=== PATIENT | female | born 1925 | race Caucasian/White ===

== ENCOUNTER 2016-05-13 14:40 | Inpatient (IN) | payer MEDICARE ==
[2016-05-13] MEDS ORDERED: SODIUM CHLORIDE 0.9% 500 ML IV STA (15:23)
[2016-05-13] MEDS ORDERED: ONDANSETRON 4 MG/2 ML VIAL IVP STA (15:26)
--- NOTE | 2016-05-13 15:26 | ED ---
General Adult HPI - General Chief complaint: Neuro Symptoms/Deficit Stated complaint: CVA Symptoms Time Seen by Provider: 05/13/16 14:50 Source: family, RN notes reviewed Mode of arrival: wheelchair Limitations: no limitations - History of Present Illness Initial comments: This is an 89-year-old female who presents to the emergency department with family because lately she has had some confusion which is been intermittent for about 2 weeks she's also had some episodes of coughing up quite a bit of phlegm appears to family as being intermittent some that she has a Thursday she doesn't they also states patient has had slurred speech on occasion as well. According to family today she's doing very good but her family doctor wanted to come in and be worked up because of the symptoms. Patient also complains about a headache on a daily basis according to family which is unusual. Patient has not had any recent injury or trauma. Patient did have a fall but she landed on her buttocks and did not get hurt. Patient denies any dizziness or lightheadedness. Patient denies any palpitations chest pain. Patient denies any shortness of breath or difficulty breathing. Patient denies any abdominal pain patient has not had any diarrhea. She is mildly nauseated. - Related Data Home Medications Medication Instructions Recorded Confirmed ALPRAZolam [Xanax] 0.25 mg PO BID PRN 05/13/16 05/13/16 Losartan Potassium [Cozaar] 100 mg PO DAILY 05/13/16 05/13/16 Metoprolol Succinate (ER) [Toprol 100 mg PO HS 05/13/16 05/13/16 Xl] Multivits-Min/Iron/FA/Lutein 1 tab PO DAILY 05/13/16 05/13/16 [Centrum Silver Women Tablet] traMADol HCL [Ultram] 50 mg PO Q6HR PRN 05/13/16 05/13/16 Allergies Allergy/AdvReac Type Severity Reaction Status Date / Time Penicillins Allergy Unknown Verified 05/13/16 15:55 Sulfa (Sulfonamide Allergy Unknown Verified 05/13/16 15:55 Antibiotics) Review of Systems ROS Statement: Those systems with pertinent positive or pertinent negative responses have been documented in the HPI. ROS Other: All systems not noted in ROS Statement are negative. Past Medical History Past Medical History: Hypertension History of Any Multi-Drug Resistant Organisms: None Reported Past Surgical History: Adenoidectomy, Appendectomy, Back Surgery, Cholecystectomy, Orthopedic Surgery, Tonsillectomy Past Psychological History: Anxiety Smoking Status: Never smoker Past Alcohol Use History: None Reported Past Drug Use History: None Reported General Exam - General Exam Comments Initial Comments: GENERAL: Patient is well-developed and well-nourished. Patient is nontoxic and well- hydrated and is in no acute distress. ENT: Neck is soft and supple. No significant lymphadenopathy is noted. Oropharynx is clear. Moist mucous membranes. Neck has full range of motion without eliciting any pain. EYES: The sclera were anicteric and conjunctiva were pink and moist. Extraocular movements were intact and pupils were equal round and reactive to light. Eyelids were unremarkable. PULMONARY: Unlabored respirations. Good breath sounds bilaterally. No audible rales rhonchi or wheezing was noted. CARDIOVASCULAR: There is a regular rate and rhythm without any murmurs gallops or rubs. ABDOMEN: Soft and nontender with normal bowel sounds. No palpable organomegaly was noted. There is no palpable pulsatile mass. SKIN: Skin is clear with no lesions or rashes and otherwise unremarkable. NEUROLOGIC: Patient is alert and oriented x3. Cranial nerves II through XII are grossly intact. Motor and sensory are also intact. Normal speech, volume and content. Symmetrical smile. MUSCULOSKELETAL: Normal extremities with adequate strength and full range of motion. No lower extremity swelling or edema. No calf tenderness. LYMPHATICS: No significant lymphadenopathy is noted PSYCHIATRIC: Normal psychiatric evaluation. Limitations: no limitations Course Vital Signs 05/13/16 05/13/16 14:43 16:36 Temperature 97.5 F L Pulse Rate 56 L 53 L Respiratory 18 18 Rate Blood Pressure 222/104 154/73 O2 Sat by Pulse 95 Oximetry Medical Decision Making - Medical Decision Making EKG shows a sinus bradycardia with a PAC at 56 bpm. It was 170 QRS is under QT intervals 490 QT C is 472. Patient's EKG shows no ST segment elevation or depression or T-wave abdomen is noted. Patient's CAT scan was normal. Patient's chest x-ray was normal. Patient remained asymptomatic throughout her ED course. I spoke with Dr. Briggs he wanted the patient admitted and seen by neurology for these multiple TIAs symptoms over the last couple of weeks. - Lab Data Result diagrams: 05/13/16 15:50 05/13/16 15:50 Lab Results 05/13/16 05/13/16 05/13/16 Range/Units 15:50 15:50 15:50 WBC 7.8 (3.8-10.6) k/uL RBC 4.41 (3.80-5.40) m/uL Hgb 11.5 (11.4-16.0) gm/dL Hct 36.5 (34.0-46.0) % MCV 82.7 (80.0-100.0) fL MCH 26.0 (25.0-35.0) pg MCHC 31.4 (31.0-37.0) g/dL RDW 15.7 H (11.5-15.5) % Plt Count 386 (150-450) k/uL Neutrophils % 59 % Lymphocytes % 31 % Monocytes % 5 % Eosinophils % 3 % Basophils % 1 % Neutrophils # 4.6 (1.3-7.7) k/uL Lymphocytes # 2.4 (1.0-4.8) k/uL Monocytes # 0.4 (0-1.0) k/uL Eosinophils # 0.2 (0-0.7) k/uL Basophils # 0.0 (0-0.2) k/uL Hypochromasia Slight PT (9.0-12.0) sec INR (<1.1) APTT (22.0-30.0) sec Sodium 141 (137-145) mmol/L Potassium 2.7 L* (3.5-5.1) mmol/L Chloride 102 (98-107) mmol/L Carbon Dioxide 26 (22-30) mmol/L Anion Gap 13 mmol/L BUN 12 (7-17) mg/dL Creatinine 0.70 (0.52-1.04) mg/dL Est GFR (MDRD) Af Amer >60 (>60 ml/min/1.73 sqM) Est GFR (MDRD) Non-Af >60 (>60 ml/min/1.73 sqM) Glucose 81 (74-99) mg/dL Calcium 9.2 (8.4-10.2) mg/dL Magnesium 1.5 L (1.6-2.3) mg/dL Total Bilirubin 1.0 (0.2-1.3) mg/dL AST 38 H (14-36) U/L ALT 29 (9-52) U/L Alkaline Phosphatase 80 (38-126) U/L Total Creatine Kinase 60 (30-135) U/L CK-MB (CK-2) 0.7 (0.0-2.4) ng/mL CK-MB (CK-2) Rel Index 1.2 Troponin I 0.021 (0.000-0.034) ng/mL Total Protein 5.9 L (6.3-8.2) g/dL Albumin 3.3 L (3.5-5.0) g/dL 05/13/16 Range/Units 15:50 WBC (3.8-10.6) k/uL RBC (3.80-5.40) m/uL Hgb (11.4-16.0) gm/dL Hct (34.0-46.0) % MCV (80.0-100.0) fL MCH (25.0-35.0) pg MCHC (31.0-37.0) g/dL RDW (11.5-15.5) % Plt Count (150-450) k/uL Neutrophils % % Lymphocytes % % Monocytes % % Eosinophils % % Basophils % % Neutrophils # (1.3-7.7) k/uL Lymphocytes # (1.0-4.8) k/uL Monocytes # (0-1.0) k/uL Eosinophils # (0-0.7) k/uL Basophils # (0-0.2) k/uL Hypochromasia PT 10.7 (9.0-12.0) sec INR 1.1 (<1.1) APTT 18.1 L (22.0-30.0) sec Sodium (137-145) mmol/L Potassium (3.5-5.1) mmol/L Chloride (98-107) mmol/L Carbon Dioxide (22-30) mmol/L Anion Gap mmol/L BUN (7-17) mg/dL Creatinine (0.52-1.04) mg/dL Est GFR (MDRD) Af Amer (>60 ml/min/1.73 sqM) Est GFR (MDRD) Non-Af (>60 ml/min/1.73 sqM) Glucose (74-99) mg/dL Calcium (8.4-10.2) mg/dL Magnesium (1.6-2.3) mg/dL Total Bilirubin (0.2-1.3) mg/dL AST (14-36) U/L ALT (9-52) U/L Alkaline Phosphatase (38-126) U/L Total Creatine Kinase (30-135) U/L CK-MB (CK-2) (0.0-2.4) ng/mL CK-MB (CK-2) Rel Index Troponin I (0.000-0.034) ng/mL Total Protein (6.3-8.2) g/dL Albumin (3.5-5.0) g/dL Disposition Clinical Impression: Transient cerebral ischemia Disposition: ADMITTED IP TO THIS [facility] Time of Disposition: 16:59
[2016-05-13 16:03] LABS: Basophils % (A) 1 %; CH 26.6; CHCM 32.3; Eosinophils # (A) 0.2 k/uL (0-0.7); Eosinophils % (A) 3 %; HCT 36.5 % (34.0-46.0); HDW 3.39; HGB 11.5 gm/dL (11.4-16.0); Hypochromasia Slight; Luc % (Auto) 1; Lymphocytes # (A) 2.4 k/uL (1.0-4.8); Lymphocytes % (A) 31 %; MCHC 31.4 g/dL (31.0-37.0); MCV 82.7 fL (80.0-100.0); Mean Platelet Volume 7.8; Monocytes # (A) 0.4 k/uL (0-1.0); Monocytes % (A) 5 %; Neutrophils # (A) 4.6 k/uL (1.3-7.7); Neutrophils % (A) 59 %; RBC 4.41 m/uL (3.80-5.40); RDW 15.7 % (11.5-15.5); WBC 7.8 k/uL (3.8-10.6); WBC (Perox) 8.41
[2016-05-13 16:21] LABS: ALT 29 U/L (9-52); AST 38 U/L (14-36); Alkaline Phosphatase 80 U/L (38-126); Anion Gap 13 mmol/L; Blood Urea Nitrogen 12 mg/dL (7-17); Calcium 9.2 mg/dL (8.4-10.2); Carbon Dioxide 26 mmol/L (22-30); Chloride 102 mmol/L (98-107); Glucose 81 mg/dL (74-99); Magnesium 1.5 mg/dL (1.6-2.3); Non-African American GFR(MDRD) >60 (>60 ml/min/1.73 sqM); Sodium 141 mmol/L (137-145); Total Protein 5.9 g/dL (6.3-8.2)
[2016-05-13 16:25] LABS: Potassium 2.7 mmol/L (3.5-5.1)
[2016-05-13 16:29] LABS: INR 1.1 (<1.1); Prothrombin Time 10.7 sec (9.0-12.0)
--- NOTE | 2016-05-13 16:29 | XR ---
EXAMINATION TYPE: XR chest 2V DATE OF EXAM: 05/13/2016 4:20 PM COMPARISON: NONE INDICATION: Chest pain, fall TECHNIQUE: Frontal and lateral views of the chest are obtained. FINDINGS: Cardiomediastinal silhouette is slightly prominent. The pulmonary vasculature is normal. The lungs are clear. No pneumothorax is evident. Stimulator leads are within the thoracic region. IMPRESSION: 1. No acute pulmonary process. 2. Mild prominence of cardiomediastinal silhouette.
--- NOTE | 2016-05-13 16:31 | CT ---
EXAMINATION TYPE: CT brain wo con DATE OF EXAM: 05/13/2016 4:18 PM COMPARISON: NONE INDICATION: Stroke like symptoms. Pt unsure of why she is here. DLP: 1058 mGycm, Automated exposure control for dose reduction was used. CONTRAST: CT scan of the head is performed , patient injected with mL of . CT of the brain is performed utilizing 3 mm thick sections through the posterior fossa and 3 mm thick sections through the remaining calvarium. Study is performed within 24 hours of arrival to the hosp ital. No abnormal hyperdensity is present to suggest an acute intracranial hemorrhage. No mass lesion is evident. No acute infarcts are evident. Periventricular white matter hypodensity is present, likely on the bas is of microvascular ischemic change. Ventricles and sulci are mildly prominent for the patient age. Paranasal sinuses and mastoid air cells within the [id number]-[id number] are clear. IMPRESSIONS: 1. Mild periventricular white matter ischemic type changes.
[2016-05-13] MEDS ORDERED: POTASSIUM CHLORIDE ER 20 MEQ TAB.ER PO STA (16:33)
[2016-05-13 16:36] LABS: Creatine Kinase MB 0.7 ng/mL (0.0-2.4); Troponin I 0.021 ng/mL (0.000-0.034)
[2016-05-13 16:39] LABS: Partial Thromboplastin Time 18.1 sec (22.0-30.0)
[2016-05-13] MEDS ORDERED: POTASSIUM CHLORIDE 20 MEQ, LIDOCAINE 2% INJ 20 MG in SODIUM CHLORIDE 0.9% 100 ML IVPB ONE (17:00)
[2016-05-13 17:37] LABS: Amorphous Sediment,Urine Rare /hpf; Appearance,Urine Clear (Clear); Bacteria,Urine Rare /hpf; Bilirubin,Urine 1+ (Negative); Glucose,Urine (UA) Negative (Negative); Ketones,Urine 2+ (Negative); Leukocyte Esterase,Urine Small (Negative); Mucus,Urine Rare /hpf; Nitrite,Urine Negative (Negative); PH, Urine 6.5 (5.0-8.0); Particle Count 2496; Protein,Urine Trace (Negative); RBC,Urine 1 /hpf (0-5); Specific Gravity,Urine 1.012 (1.001-1.035); Squamous Epithelial Cell,Urine 9 /hpf (0-4); UA Billing (MACRO vs. MICRO) MICRO; WBC,Urine 3 /hpf (0-5)
[2016-05-13 21:20] VITALS: RESP 18
[2016-05-13] MEDS ORDERED: ACETAMINOPHEN TAB 325 MG TAB PO PRN (22:01)
--- NOTE | 2016-05-13 22:05 | US ---
EXAMINATION TYPE: US carotid duplex BILAT DATE OF EXAM: 05/13/2016 7:23 PM COMPARISON: NONE CLINICAL HISTORY: stroke like symptoms. Stenosis Grayscale, color Doppler, spectral Doppler imaging performed of the carotid arteries. EXAM MEASUREMENTS: RIGHT: Peak Systolic Velocity (PSV) cm/sec ----- Right CCA: 47.0 ----- Right ICA: 46.9 ----- Right ECA: 63.6 ICA/CCA ratio: 1.0 RIGHT: End Diastole cm/sec ----- Right CCA: 10.4 ----- Right ICA: 9.2 ----- Right ECA: 0.0 LEFT: Peak Systolic Velocity (PSV) cm/sec ----- Left CCA: 45.5 ----- Left ICA: 121.0 ----- Left ECA: 42.7 ICA/CCA ratio: 2.7 LEFT: End Diastole cm/sec ----- Left CCA: 12.7 ----- Left ICA: 30.5 ----- Left ECA: 0.0 VERTEBRALS (direction of flow): Right Vertebral: Antegrade Left Vertebral: Antegrade Bilateral wall thickening. Slight left distal ICA elevated velocity likely due to tortuous vessel, no abnormal peak systolic velocity. Anterior plaque seen in right bulb extending to ECA. Mild atheromatous plaque. IMPRESSION: No hemodynamic significant stenosis of the proximal internal carotid arteries bilaterally by Doppler criteria, and indirect measurement of carotid stenosis. Criteria for Assigning % of Stenosis / Diameter reduction (Estimation based on the indirect measurements of the internal carotid artery velocities (ICA PSV). 1. Normal (no stenosis)=ICA PSV < 125 cm/s: ratio < 2.0: ICA EDV<40 cm/s. 2. Less than 50% stenosis=ICA PSV < 125 cm/s: ratio < 2.0: ICA EDV<40 cm/s. 3. 50 to 69% stenosis=ICA PSV of 125 to 230 cm/s: ration 2.0 ? 4.0: ICA EDV 40-100 cm/s. 4. Greater than 70% stenosis to near occlusion= ICA PSV > 230 cm/s: ratio > 4.0: ICA EDV > 100 cm/s. 5. Near occlusion= ICA PSV velocities may be low or undetectable: variable ratio and ICA EDV. 6. Total occlusion=unable to detect flow.
[2016-05-13] MEDS: METOPROLOL SUCCINATE (ER) 100 MG TAB.ER.24H PO SCH (22:40)
[2016-05-13] MEDS: traMADol 50 MG TAB PO PRN (22:40)
[2016-05-13] MEDS: ALPRAZolam 0.25 MG TAB PO PRN (22:51)
[2016-05-14] MEDS: traMADol 50 MG TAB PO PRN ×3 (06:36→21:40)
[2016-05-14] MEDS: LOSARTAN 50 MG TAB PO SCH (08:47)
[2016-05-14] MEDS: ASPIRIN 81 MG CHEW PO SCH (08:48)
[2016-05-14] MEDS ORDERED: Potassium Replacement Protocol 1 EACH MISC MISCELLANE PRN (09:35)
[2016-05-14] MEDS ORDERED: Magnesium Replacement Protocol 1 EACH MISC MISCELLANE PRN (09:36)
[2016-05-14] MEDS: POTASSIUM CHLORIDE 10 MEQ, LIDOCAINE 2% INJ 10 MG in SODIUM CHLORIDE 0.9% 100 ML IV SCH ×2 (10:37→13:20)
[2016-05-14] MEDS: MAGNESIUM SULFATE-D5W PMX 1 GM in DEXTROSE/WATER 1 100ML.BAG IVPB SCH ×2 (10:37→13:20)
--- NOTE | 2016-05-14 11:41 | ECHOF ---
Referral Reason:TIA MEASUREMENTS -------- HEIGHT: 165.1 cm WEIGHT: 83.0 kg BP: 163/69 RVIDd: 3.2 cm (< 3.3) IVSd: 1.0 cm (0.6 - 1.1) LVIDd: 4.5 cm (3.9 - 5.3) LVPWd: 1.1 cm (0.6 - 1.1) IVSs: 2.0 cm LVIDs: 2.7 cm LVPWs: 1.7 cm LA Diam: 3.6 cm (2.7 - 3.8) LAESV Index (A-L): 30.17 ml/m Ao Diam: 3.1 cm (2.0 - 3.7) AV Cusp: 1.6 cm (1.5 - 2.6) LA Diam: 3.5 cm (2.7 - 3.8) MV EXCURSION: 19.783 mm (> 18.000) MV EF SLOPE: 126 mm/s (70 - 150) EPSS: 0.3 cm MV E Timothy: 0.78 m/s MV DecT: 342 ms MV A Timothy: 0.64 m/s MV E/A Ratio: 1.22 RAP: 5.00 mmHg RVSP: 44.45 mmHg FINDINGS -------- Resting bradycardia (HR<60bpm). This was a technically good study. Left ventricular wall thickness is normal. Overall left ventricular systolic function is normal with, an EF between 60 - 65 %. The right ventricle is mildly enlarged. LA is midly dilated 29-33ml/m2. The right atrium is normal in size. Aortic valve is trileaflet and is mildly thickened. The mitral valve leaflets are mildly thickened. Mild mitral annular calcification present. Axyy-xj-cwsckblk mitral regurgitation is present. Svky-xq-gwhqwscx tricuspid regurgitation present. There is mild pulmonary hypertension. The right ventricular systolic pressure, as measured by Doppler, is 44.45mmHg. Trace/mild (physiologic) pulmonic regurgitation. The aortic root size is normal. Normal inferior vena cava with normal inspiratory collapse consistent with estimated right atrial pressure of 5 mmHg. The pericardium is normal. CONCLUSIONS -------- 1. Resting bradycardia (HR<60bpm). 2. Mild mitral annular calcification present. 3. Gpkm-ii-ozzftxmu mitral regurgitation is present. 4. Eeuo-so-hxyduvqp tricuspid regurgitation present. 5. There is mild pulmonary hypertension. 6. The right ventricular systolic pressure, as measured by Doppler, is 44.45mmHg. 7. Trace/mild (physiologic) pulmonic regurgitation. 8. The aortic root size is normal. 9. The pericardium is normal. 10. This was a technically good study. 11. Left ventricular wall thickness is normal. 12. Overall left ventricular systolic function is normal with, an EF between 60 - 65 %. 13. The right ventricle is mildly enlarged. 14. LA is midly dilated 29-33ml/m2. 15. The right atrium is normal in size. 16. Aortic valve is trileaflet and is mildly thickened. 17. The mitral valve leaflets are mildly thickened. REGISTERED PHARMACIST: Steffen Wren RDCS
--- NOTE | 2016-05-14 12:40 | P.HPIM ---
History of Present Illness H&P Date: 05/14/16 Chief Complaint: Episode of confusion, possible TIA Patient is an 89-year-old female who presented to [facility] emergency room after having an episode of confusion family states that patient was unable to recognize her daughter, she was severely confused she states that she fell down 4 days prior to this admission she denies any head trauma, she states that she slid off the bed and hit her lower back, she states that she takes tramadol for pain at home but denies taking any extra pills in the last few days, she was evaluated in the emergency room in regard to her confusion and was admitted to telemetry floor for further evaluation and treatment. Computed tomography scan of the brain was done in the emergency room without contrast and revealed mild periventricular small vessel ischemic changes otherwise no abnormality. Echocardiogram and carotid Dopplers were ordered. Past Medical History Past Medical History: Cancer, GERD/Reflux, Hearing Disorder / Deafness, Hyperlipidemia, Hypertension, Memory Impairment Additional Past Medical History / Comment(s): Macular degeneration, TETLIN, breast CA, uses a walker at home, fall at home on 05/09/2016, memory impairment new onset as of 05/13/2016 History of Any Multi-Drug Resistant Organisms: None Reported Past Surgical History: Adenoidectomy, Appendectomy, Back Surgery, Cholecystectomy, Orthopedic Surgery, Tonsillectomy Additional Past Surgical History / Comment(s): Bilat knee repalacements, all bottom teeth removed and relaced in 1999, breast lumpectomy r/t breast CA in 1999 Past Anesthesia/Blood Transfusion Reactions: No Reported Reaction Past Psychological History: Anxiety Smoking Status: Never smoker Past Alcohol Use History: None Reported Past Drug Use History: None Reported - Past Family History Mother History Unknown: Yes Additional Family Medical History / Comment(s): states mom in her early 30's from a unknown cause Father Family Medical History: Myocardial Infarction ([place]) Additional Family Medical History / Comment(s): d/t an [place] Medications and Allergies Home Medications Medication Instructions Recorded Confirmed Type ALPRAZolam [Xanax] 0.25 mg PO BID PRN 05/13/16 05/13/16 History Losartan Potassium [Cozaar] 100 mg PO DAILY 05/13/16 05/13/16 History Metoprolol Succinate (ER) [Toprol 100 mg PO HS 05/13/16 05/13/16 History Xl] Multivits-Min/Iron/FA/Lutein 1 tab PO DAILY 05/13/16 05/13/16 History [Centrum Silver Women Tablet] traMADol HCL [Ultram] 50 mg PO Q6HR PRN 05/13/16 05/13/16 History Allergies Allergy/AdvReac Type Severity Reaction Status Date / Time Penicillins Allergy Unknown Verified 05/13/16 15:55 Sulfa (Sulfonamide Allergy Unknown Verified 05/13/16 15:55 Antibiotics) Physical Exam Vitals: Vital Signs Temp Pulse Pulse Pulse Resp BP BP 05/14/16 08:00 97.6 F 58 L 18 156/74 05/14/16 04:00 53 L 18 163/69 05/13/16 23:58 56 L 18 188/72 05/13/16 20:30 96.4 F L 52 L 52 L 18 177/78 05/13/16 19:56 164/79 05/13/16 19:48 97.6 F 52 L 16 164/102 05/13/16 19:01 53 L 17 05/13/16 18:52 97.8 F 51 L 17 05/13/16 18:01 52 L 17 BP Pulse Ox 05/14/16 08:00 95 05/14/16 04:00 93 L 05/13/16 23:58 94 L 05/13/16 20:30 95 05/13/16 19:56 05/13/16 19:48 99 05/13/16 19:01 167/107 100 05/13/16 18:52 164/76 99 05/13/16 18:01 169/82 94 L Intake and Output 05/13/16 05/14/16 05/14/16 22:59 06:59 14:59 Intake Total 300 300 Output Total 352 Balance -52 300 Intake: Oral 300 300 Output: Urine 350 Urine/Stool Mix 2 Other: Voiding Method Toilet Toilet # Voids 1 Weight 90.718 kg 83.4 kg In general at this time patient is alert and oriented 3 in no apparent distress she states that at this time she is back to her baseline HEENT without any acute abnormality Neck is supple no JVD no goiter no lymphadenopathy Chest exam reveals a few scattered crackles no wheezing Cardiac exam reveals regular heart sounds no gallops no murmurs Abdomen is soft nontender no organomegaly Extremity exam reveals no edema no cyanosis or clubbing Neurological examination reveals no focal neurological deficit Results CBC & Chem 7: 05/13/16 15:50 05/14/16 07:18 Labs: Abnormal Lab Results - Last 24 Hours (Table) 05/13/16 05/14/16 Range/Units 17:02 07:18 Potassium 3.1 L (3.5-5.1) mmol/L Urine Protein Trace H (Negative) Urine Ketones 2+ H (Negative) Urine Bilirubin 1+ H (Negative) Ur Leukocyte Esterase Small H (Negative) Ur Squamous Epith Cells 9 H (0-4) /hpf Amorphous Sediment Rare H (None) /hpf Urine Bacteria Rare H (None) /hpf Urine Mucus Rare H (None) /hpf Thrombosis Risk Factor Assmnt - Choose All That Apply Any of the Below Risk Factors Present?: Yes Each Factor Represents 1 point: Obesity (BMI >25) Other Risk Factors: Yes Each Risk Factor Represents 3 Points: Age 75 years or older Other congenital or acquired thrombophilia - If yes, enter type in comment: No Thrombosis Risk Factor Assessment Total Risk Factor Score: 4 Thrombosis Risk Factor Assessment Level: Moderate Risk Assessment and Plan Plan: #1 episode of confusion may represent a TIA at this time aspirin was added to regimen echocardiogram and carotid Doppler were ordered #2 urinary tract infection patient will be started on Cipro Will obtain urine culture #3 underlying history of hypertension well-controlled on current medication #4 underlying history of degenerative disc disease was chronic back pain maintained on tramadol #5 underlying history of anxiety disorder maintained on Xanax when necessary At this time awaiting testing results will follow closely thank you very much end
[2016-05-14] MEDS: ALPRAZolam 0.25 MG TAB PO PRN ×2 (13:20→21:41)
[2016-05-14] MEDS: CIPROFLOXACIN HCL 250 MG TAB PO SCH ×2 (16:28→21:42)
--- NOTE | 2016-05-14 20:24 | P.CNNES ---
History of Present Illness Consult date: 05/14/16 Reason for Consult: Patient with episode of confusion and possible TIA. History of Present Illness: This patient is a pleasant 89-year-old right-handed white female who was admitted to [facility] for episode of acute confusion and recent fall. Patient had been having symptoms of multiple falls and weakness as well as intermittent slurring of her speech. Apparently this has been ongoing over the last week. Patient states she was just not feeling well for the past 1 week and had weakness involving both upper and lower extremities. Her daughter who checks on her on a regular basis noted also that she appeared to be much more confused and disoriented. For these reasons it was decided to bring her to the emergency room for further evaluation. She was seen in the ER and was sent for a computed tomography scan of the brain. CAT scan of the brain revealed only mild periventricular small vessel ischemic changes otherwise no other acute stroke or hemorrhage was noted. She was admitted to the hospital for further evaluation for possible TIA. Patient states she did have difficulty with her speech about a week ago. Her speech is now returned much to normal. In the emergency room she did have evidence of a urinary tract infection and has been started on antibiotic therapy. The daughter who is at bedside has noted a significant improvement in her mental status today. She does seem to be back to near baseline level of function. The patient underwent carotid Doppler ultrasound yesterday which was negative for any evidence of carotid artery stenosis. Echocardiogram of the heart reveals ejection fraction of 60%. Patient is quite alert and is able to follow all questions and answers at this time. Patient is now admitted and neurology has been consulted for further evaluation and recommendations. Review of Systems Constitutional: Denies chills, Denies fever Eyes: denies blurred vision, denies pain Ears, nose, mouth and throat: Denies headache, Denies sore throat Cardiovascular: Denies chest pain, Denies shortness of breath Respiratory: Denies cough Gastrointestinal: Denies abdominal pain, Denies diarrhea, Denies nausea, Denies vomiting Genitourinary: Denies dysuria, Denies hematuria Musculoskeletal: Denies myalgias Integumentary: Denies pruritus, Denies rash Neurological: Reports change in mentation, Reports change in speech, Denies numbness, Denies weakness Psychiatric: Denies anxiety, Denies depression Endocrine: Denies fatigue, Denies weight change Past Medical History Past Medical History: Cancer, GERD/Reflux, Hearing Disorder / Deafness, Hyperlipidemia, Hypertension, Memory Impairment Additional Past Medical History / Comment(s): Macular degeneration, [place], breast [place], uses a walker at home, fall at home on 05/09/2016, memory impairment new onset as of 05/13/2016 History of Any Multi-Drug Resistant Organisms: None Reported Past Surgical History: Adenoidectomy, Appendectomy, Back Surgery, Cholecystectomy, Orthopedic Surgery, Tonsillectomy Additional Past Surgical History / Comment(s): Bilat knee repalacements, all bottom teeth removed and relaced in 1999, breast lumpectomy r/t breast CA in 1999 Past Anesthesia/Blood Transfusion Reactions: No Reported Reaction Past Psychological History: Anxiety Smoking Status: Never smoker Past Alcohol Use History: None Reported Past Drug Use History: None Reported - Past Family History Mother History Unknown: Yes Additional Family Medical History / Comment(s): states mom in her early 30's from a unknown cause Father Family Medical History: Myocardial Infarction ([place]) Additional Family Medical History / Comment(s): d/t an [place] Medications and Allergies Home Medications Medication Instructions Recorded Confirmed Type ALPRAZolam [Xanax] 0.25 mg PO BID PRN 05/13/16 05/13/16 History Losartan Potassium [Cozaar] 100 mg PO DAILY 05/13/16 05/13/16 History Metoprolol Succinate (ER) [Toprol 100 mg PO HS 05/13/16 05/13/16 History Xl] Multivits-Min/Iron/FA/Lutein 1 tab PO DAILY 05/13/16 05/13/16 History [Centrum Silver Women Tablet] traMADol HCL [Ultram] 50 mg PO Q6HR PRN 05/13/16 05/13/16 History Allergies Allergy/AdvReac Type Severity Reaction Status Date / Time Penicillins Allergy Unknown Verified 05/13/16 15:55 Sulfa (Sulfonamide Allergy Unknown Verified 05/13/16 15:55 Antibiotics) Physical Examination - Vital Signs Vital Signs: Vital Signs Temp Pulse Pulse Pulse Resp BP BP 05/14/16 08:00 97.6 F 58 L 18 156/74 05/14/16 04:00 53 L 18 163/69 05/13/16 23:58 56 L 18 188/72 05/13/16 20:30 96.4 F L 52 L 52 L 18 177/78 05/13/16 19:56 164/79 05/13/16 19:48 97.6 F 52 L 16 164/102 05/13/16 19:01 53 L 17 05/13/16 18:52 97.8 F 51 L 17 05/13/16 18:01 52 L 17 BP Pulse Ox 05/14/16 08:00 95 05/14/16 04:00 93 L 05/13/16 23:58 94 L 05/13/16 20:30 95 05/13/16 19:56 05/13/16 19:48 99 05/13/16 19:01 167/107 100 05/13/16 18:52 164/76 99 05/13/16 18:01 169/82 94 L Intake and Output 05/14/16 05/14/16 05/14/16 06:59 14:59 22:59 Intake Total 300 520 Output Total 352 Balance -52 520 Intake: Oral 300 520 Output: Urine 350 Urine/Stool Mix 2 Other: Voiding Method Toilet # Voids 1 1 Weight 83.4 kg - Constitutional General appearance: average body habitus, cooperative - EENT EENT: PERRL, mucous membranes moist - Respiratory Respiratory: lungs clear, normal breath sounds - Cardiovascular Cardiovascular: regular rate, normal S1, normal S2 Extremities: no peripheral edema bilaterally - Gastrointestinal Gastrointestinal: normoactive bowel sounds - Integumentary Integumentary: normal - Neurologic Cranial nerve examination: PERRL, EOMI, VFF, V1/V2/V3 grossly intact, face symmetric, tongue midline, intact gag reflex, intact corneal reflex, normal palatal elevation Speech examination: intact Sensorimotor examination: intact Detailed motor examination: grossly full strength in all extremities Detailed sensory examination: intact Reflex and gait examination: intact Reflexes: 1+: ankle, bicep, knee, tricep - Musculoskeletal Musculoskeletal: no pain - Psychiatric Psychiatric: mood/affect appropriate, cooperative Results - Laboratory Findings CBC and BMP: 05/13/16 15:50 05/14/16 07:18 Abnormal Lab Findings: Abnormal Labs 05/13/16 05/14/16 17:02 07:18 Potassium 3.1 L Urine Protein Trace H Urine Ketones 2+ H Urine Bilirubin 1+ H Ur Leukocyte Esterase Small H Ur Squamous Epith Cells 9 H Amorphous Sediment Rare H Urine Bacteria Rare H Urine Mucus Rare H Assessment and Plan (1) Metabolic encephalopathy Status: Acute Code(s): G93.41 - METABOLIC ENCEPHALOPATHY (2) Transient cerebral ischemia Status: Acute Code(s): G45.9 - TRANSIENT CEREBRAL ISCHEMIC ATTACK, UNSPECIFIED Plan: This patient is a pleasant 89-year-old female admitted to hospital with episode of recurrent slurred speech and recent fall at home 5 days ago. Patient was brought into the emergency room where she was found to have evidence of urinary tract infection and was admitted to the hospital. She underwent computed tomography scan of the brain which failed to reveal any evidence of acute stroke or hemorrhage. She was started on antibiotics for urinary tract infection. She underwent a carotid Doppler ultrasound and echocardiogram both of these results are normal for her age. This patient's neurological exam at this time is nonfocal. She is doing much better in terms of her mental status and cognition. This patient likely has had an episode of acute metabolic encephalopathy secondary to urinary tract infection. She is showing significant improvement today. We will continue close monitoring for any recurrent TIA like symptoms. Her overall prognosis at this time remains guarded. Time with Patient: Greater than 30
[2016-05-14] MEDS: METOPROLOL SUCCINATE (ER) 100 MG TAB.ER.24H PO SCH (21:42)
[2016-05-15 09:28] LABS: ALT 34 U/L (9-52); AST 34 U/L (14-36); Alkaline Phosphatase 67 U/L (38-126); Anion Gap 10 mmol/L; Blood Urea Nitrogen 12 mg/dL (7-17); Calcium 8.5 mg/dL (8.4-10.2); Carbon Dioxide 31 mmol/L (22-30); Chloride 104 mmol/L (98-107); Glucose 103 mg/dL (74-99); Non-African American GFR(MDRD) >60 (>60 ml/min/1.73 sqM); Sodium 145 mmol/L (137-145); Total Bilirubin 0.6 mg/dL (0.2-1.3); Total Protein 5.4 g/dL (6.3-8.2)
[2016-05-15 09:32] LABS: Basophils % (A) 1 %; CH 25.5; CHCM 29.3; Eosinophils # (A) 0.2 k/uL (0-0.7); Eosinophils % (A) 4 %; HCT 35.1 % (34.0-46.0); HDW 3.16; HGB 10.6 gm/dL (11.4-16.0); Hypochromasia Marked; Luc # (Auto) 0.16; Luc % (Auto) 3; Lymphocytes # (A) 1.9 k/uL (1.0-4.8); Lymphocytes % (A) 29 %; MCH 26.4 pg (25.0-35.0); MCHC 30.1 g/dL (31.0-37.0); MCV 87.6 fL (80.0-100.0); Monocytes # (A) 0.4 k/uL (0-1.0); Monocytes % (A) 6 %; Neutrophils # (A) 3.7 k/uL (1.3-7.7); Neutrophils % (A) 58 %; RDW 15.9 % (11.5-15.5); WBC 6.4 k/uL (3.8-10.6)
[2016-05-15 09:43] LABS: Potassium 2.9 mmol/L (3.5-5.1)
[2016-05-15] MEDS: traMADol 50 MG TAB PO PRN (09:47)
[2016-05-15] MEDS: ASPIRIN 81 MG CHEW PO SCH (09:47)
[2016-05-15] MEDS: CIPROFLOXACIN HCL 250 MG TAB PO SCH (09:47)
[2016-05-15] MEDS: LOSARTAN 50 MG TAB PO SCH (09:47)
[2016-05-15] MEDS: POTASSIUM CHLORIDE ER 20 MEQ TAB.ER PO SCH ×3 (10:49→13:53)
[2016-05-15] MEDS ORDERED: MAGNESIUM SULFATE-D5W PMX 1 GM in DEXTROSE/WATER 1 100ML.BAG IVPB ONE (11:00)
[2016-05-15 11:11] LABS: Manual Review Performed
[2016-05-15 11:15] VITALS: BMI 30.5
--- NOTE | 2016-05-15 13:11 | P.DS ---
Providers Date of admission: 05/13/16 17:01 Expected date of discharge: 05/15/16 Attending physician: Dereck Briggs Consults: 05/14/16 12:31 Consult Physician Routine Consulting Provider: Brisa Jenkins Consult Reason/Comments: TIA, abnormal echo Do you want consulting provider notified?: Yes Dr. Dhaliwal Primary care physician: Dereck Brigitte [facility] Course: Discharge diagnosis 1. Acute metabolic encephalopathy secondary to UTI 2. Possible TIA 3. UTI continue Cipro for 6 more days 4. Essential hypertension 5. Chronic back pain and degenerative disc disease 6. Generalized anxiety disorder 7. Hypokalemia. Patient received potassium supplement at discharge. Potassium 2.9. Recommend checking a potassium level on Thursday. Also patient was discharged home with K-Dur 20 milliequivalents daily. Hospital course Patient is an 89-year-old female who presented to [facility] emergency room after having an episode of confusion family states that patient was unable to recognize her daughter, she was severely confused she states that she fell down 4 days prior to this admission she denies any head trauma, she states that she slid off the bed and hit her lower back, she states that she takes tramadol for pain at home but denies taking any extra pills in the last few days, she was evaluated in the emergency room in regard to her confusion and was admitted to telemetry floor for further evaluation and treatment. Computed tomography scan of the brain was done in the emergency room without contrast and revealed mild periventricular small vessel ischemic changes otherwise no abnormality. Carotid Doppler showed no significant hemodynamic stenosis. Echo showed an EF of 60-65% with mild pulmonary hypertension. Also showed bradycardia. Patient's heart rate is currently been in the 60s. She was evaluated by cardiology before discharge. Patient was also evaluated by neurology. The neurologist felt the patient's confusion was likely due to a metabolic encephalopathy from her UTI. Patient was started on Cipro for her UTI. Urine cultures pending at time of discharge. Patient's confusion has resolved. And she is medically stable for discharge. Patient was also started on a baby aspirin for possible TIA. Patient will be discharged home with home healthcare. Please refer to chart for any further details. Patient Condition at Discharge: Stable Plan - Discharge Summary New Discharge Prescriptions: Aspirin 81 mg PO DAILY #30 chew Ciprofloxacin HCl [Cipro] 250 mg PO BID #12 tab Potassium Chloride ER [K-Dur 20] 20 meq PO DAILY #30 tab Discharge Medication List ALPRAZolam [Xanax] 0.25 mg PO BID PRN 05/13/16 [History] Losartan Potassium [Cozaar] 100 mg PO DAILY 05/13/16 [History] Metoprolol Succinate (ER) [Toprol XL] 100 mg PO HS 05/13/16 [History] Multivits-Min/Iron/FA/Lutein [Centrum Silver Women Tablet] 1 tab PO DAILY [History] traMADol HCL [Ultram] 50 mg PO Q6HR PRN 05/13/16 [History] Aspirin 81 mg PO DAILY #30 chew 05/15/16 [Rx] Ciprofloxacin HCl [Cipro] 250 mg PO BID #12 tab 05/15/16 [Rx] Potassium Chloride ER [K-Dur 20] 20 meq PO DAILY #30 tab 05/15/16 [Rx] Follow up Appointment(s)/Referral(s): Dereck Briggs MD [Primary Care Provider] - 05/19/16 Activity/Diet/Wound Care/Special Instructions: Diet: cardiac Activity: as tolerated Check BMP on Thursday Discharge Disposition: HOME WITH HOME HEALTH SERVICES
--- NOTE | 2016-05-15 13:52 | P.CRDCN ---
History of Present Illness Consult date: 05/15/16 Requesting physician: Dereck Briggs Reason for Consult (text): TIA Chief complaint: Mental status changes History of present illness: This is an 89-year-old female with history of hyperlipidemia, hypertension, GERD, who was brought to the hospital by her family because of confusion. According to the daughter she was unable to even recognize her. apparently also had a fall 4-5 days prior to this. CT of the brain was done on admission here which did not reveal any significant change, it did show some mild. Ventricular small vessel ischemic change. An echocardiogram with Doppler study was performed which revealed an ejection fraction of 60-65%. Hemodynamically stable, blood pressure 158/80, heart rate in the 50s to 60s 93% on room air. Patient was also found to have a UTI, urine culture has been sent. She was initiated on IV antibiotics. EKG on arrival here showed a sinus bradycardia with no acute changes. Chest x-ray did not reveal any acute cardiopulmonary process. Carotid duplex study did not reveal any significant obstructive stenosis. Lab data was reviewed, hemoglobin 10.6, potassium on admission 2.7, 2.9 this morning, receiving replacement. BUN 12, creatinine 0.8. Magnesium level on admission 1.5, 1.7 this morning. Patient was seen in consultation by neurology and it was felt that the patient's symptoms were likely secondary to UTI. Past Medical History Past Medical History: Cancer, GERD/Reflux, Hearing Disorder / Deafness, Hyperlipidemia, Hypertension, Memory Impairment Additional Past Medical History / Comment(s): Macular degeneration, [place], breast [place], uses a walker at home, fall at home on 05/09/2016, memory impairment new onset as of 05/13/2016 History of Any Multi-Drug Resistant Organisms: None Reported Past Surgical History: Adenoidectomy, Appendectomy, Back Surgery, Cholecystectomy, Orthopedic Surgery, Tonsillectomy Additional Past Surgical History / Comment(s): Bilat knee repalacements, all bottom teeth removed and relaced in 1999, breast lumpectomy r/t breast [place] in 1999 Past Anesthesia/Blood Transfusion Reactions: No Reported Reaction Past Psychological History: Anxiety Smoking Status: Never smoker Past Alcohol Use History: None Reported Past Drug Use History: None Reported - Past Family History Mother History Unknown: Yes Additional Family Medical History / Comment(s): states mom in her early 30's from a unknown cause Father Family Medical History: Myocardial Infarction ([place]) Additional Family Medical History / Comment(s): d/t an [place] Medications and Allergies Home Medications Medication Instructions Recorded Confirmed Type ALPRAZolam [Xanax] 0.25 mg PO BID PRN 05/13/16 05/13/16 History Losartan Potassium [Cozaar] 100 mg PO DAILY 05/13/16 05/13/16 History Metoprolol Succinate (ER) [Toprol 100 mg PO HS 05/13/16 05/13/16 History XL] Multivits-Min/Iron/FA/Lutein 1 tab PO DAILY 05/13/16 05/13/16 History [Centrum Silver Women Tablet] traMADol HCL [Ultram] 50 mg PO Q6HR PRN 05/13/16 05/13/16 History Allergies Allergy/AdvReac Type Severity Reaction Status Date / Time Penicillins Allergy Unknown Verified 05/13/16 15:55 Sulfa (Sulfonamide Allergy Unknown Verified 05/13/16 15:55 Antibiotics) Physical Exam Vitals: Vital Signs Temp Pulse Pulse Resp BP Pulse Ox 05/15/16 09:16 93 L 05/15/16 08:00 98 F 57 L 18 159/69 94 L 05/15/16 04:00 67 18 158/82 93 L 05/15/16 00:00 73 18 125/59 92 L 05/14/16 20:00 98.7 F 65 18 193/86 90 L 05/14/16 16:00 97.5 F L 53 L 59 L 18 167/82 92 L Intake and Output 05/14/16 05/15/16 05/15/16 22:59 06:59 14:59 Intake Total 236 300 120 Output Total 400 200 Balance -164 100 120 Intake: Oral 236 300 120 Output: Urine 400 200 Other: Voiding Method Toilet # Voids 2 1 Weight 83.2 kg 83.2 kg Patient Weight 05/16/16 06:59 Weight 83.2 kg PHYSICAL EXAMINATION: HEENT: Head is atraumatic, normocephalic. Pupils equal, round. Neck is supple. There is no elevated jugular venous pressure. HEART EXAMINATION: S1 and S2 systolic murmur is heard. CHEST EXAMINATION: Lungs are clear to auscultation and precussion. No chest wall tenderness is noted on palpation or with deep breathing. ABDOMEN: Soft, nontender. Bowel sounds are heard. No organomegaly noted. EXTREMITIES: 2+ peripheral pulses with no evidence of peripheral edema and no calf tenderness noted. NEUROLOGIC patient is awake, alert and oriented -3. . Results 05/15/16 05:40 05/15/16 05:40 Cardiac Enzymes 05/15/16 Range/Units 05:40 AST 34 (14-36) U/L CBC 05/15/16 Range/Units 05:40 WBC 6.4 (3.8-10.6) k/uL RBC 4.00 (3.80-5.40) m/uL Hgb 10.6 L (11.4-16.0) gm/dL Hct 35.1 (34.0-46.0) % Plt Count 335 (150-450) k/uL Comprehensive Metabolic Panel 05/15/16 Range/Units 05:40 Sodium 145 (137-145) mmol/L Potassium 2.9 L* (3.5-5.1) mmol/L Chloride 104 (98-107) mmol/L Carbon Dioxide 31 H (22-30) mmol/L BUN 12 (7-17) mg/dL Creatinine 0.86 (0.52-1.04) mg/dL Glucose 103 H (74-99) mg/dL Calcium 8.5 (8.4-10.2) mg/dL AST 34 (14-36) U/L ALT 34 (9-52) U/L Alkaline Phosphatase 67 (38-126) U/L Total Protein 5.4 L (6.3-8.2) g/dL Albumin 2.7 L (3.5-5.0) g/dL Current Medications Generic Name Dose Route Start Last Admin Trade Name Freq PRN Reason Stop Dose Admin Acetaminophen 650 mg 05/13/16 22:01 Tylenol Tab PO Q6HR PRN Fever and/ or Pain Alprazolam 0.25 mg 05/13/16 22:00 05/14/16 21:41 Xanax PO 0.25 mg BID PRN Administration Anxiety Aspirin 81 mg 05/14/16 09:00 05/15/16 09:47 Aspirin PO 81 mg DAILY BALDOMERO Administration Ciprofloxacin 250 mg 05/14/16 12:45 05/15/16 09:47 Cipro PO 250 mg BID BALDOMERO Administration Losartan Potassium 100 mg 05/14/16 09:00 05/15/16 09:47 Cozaar PO 100 mg DAILY BALDOMERO Administration Metoprolol Succinate 100 mg 05/13/16 22:00 05/14/16 21:42 Toprol Xl PO 100 mg HS BALDOMERO Administration Miscellaneous Information 1 each 05/14/16 09:36 Magnesium Per Protocol MISCELLANE DAILY PRN Per Protocol Protocol Miscellaneous Information 1 each 05/14/16 09:35 Potassium Per Protocol MISCELLANE DAILY PRN Per Protocol Protocol Tramadol HCl 50 mg 05/13/16 22:00 05/15/16 09:47 Ultram PO 50 mg Q6HR PRN Administration Pain Intake and Output 05/14/16 05/15/16 05/15/16 22:59 06:59 14:59 Intake Total 236 300 120 Output Total 400 200 Balance -164 100 120 Intake: Oral 236 300 120 Output: Urine 400 200 Other: Voiding Method Toilet # Voids 2 1 Weight 83.2 kg 83.2 kg Patient Weight 05/16/16 06:59 Weight 83.2 kg 05/15/16 05:40 05/15/16 05:40 EKG Interpretations (text) EKG shows a sinus bradycardia with no acute changes. Assessment and Plan Plan: Assessment and plan #1 mental status changes, likely secondary to UTI. Neurology consultation on board. #2 urinary tract infection, patient currently on Cipro. #3 hypertension, echocardiogram with Doppler study performed here revealed normal left ventricular systolic function. We will add Norvasc to the patient' s medication regime. From cardiology's perspective patient may be able to be discharged home. We will add a small dose of Norvasc to her medication regime. DNP note has been reviewed, I agree with a documented findings and plan of care. Patient was seen and examined.
[2016-05-15] MEDS ORDERED: amLODIPine 5 MG TAB PO SCH (14:00)
[2016-05-15 14:50] VITALS: BP 156/72; PULSE 68; TEMP 97.3
--- NOTE | 2016-05-17 08:21 | EEG ---
DATE OF SERVICE: 05/15/2016 INDICATIONS FOR EXAMINATION: This patient is an 89 -year-old female being evaluated for acute encephalopathy and confusion. AGE: 89Y EEG FINDINGS: A routine 21 channel awake digital EEG recording was accomplished utilizing the 10-20 international system with bipolar and referential montages. The background activity in the most alert resting state consists of a low to medium amplitude, fairly well developed and well sustained 6-7 Hz activity over the posterior head regions. This posterior rhythm attenuates to eye opening. There is a small amount of low amplitude 18-20 Hz beta activity seen maximally over the anterior head regions. Muscle and movement artifacts were observed on a few occasions during the tracing. Hyperventilation was not performed. Photic stimulation at flash frequencies of 2-30 Hz produced a good symmetrical occipital driving response. Towards the latter portion of the tracing, there was slight slowing of the background activity. No epileptiform discharges were seen. IMPRESSION: This EEG is mildly abnormal in a diffuse fashion due to slight slowing of the EEG background. The EEG failed to reveal any focal, lateralized or epileptiform abnormalities. Clinical correlation is recommended.
== END 2016-05-15 16:29 | disposition home health service (06) | DRG 689 ==
LOC: EC 14:40 → 6SEL 17:01
PROVIDERS: ADMIT Internal Medicine; ATTEND Internal Medicine
DX: N39.0 Urinary tract infection, site not specified (principal); G93.41 Metabolic encephalopathy; G45.9 Transient cerebral ischemic attack, unspecified; I27.2 Other secondary pulmonary hypertension; R00.1 Bradycardia, unspecified; I10 Essential (primary) hypertension; G89.29 Other chronic pain; F41.1 Generalized anxiety disorder; E87.6 Hypokalemia; E78.5 Hyperlipidemia, unspecified; H91.90 Unspecified hearing loss, unspecified ear; H35.30 Unspecified macular degeneration; K21.9 Gastro-esophageal reflux disease without esophagitis; Z85.3 Personal history of malignant neoplasm of breast; Z96.653 Presence of artificial knee joint, bilateral; Z91.81 History of falling; Z79.899 Other long term (current) drug therapy
CPT/HCPCS: 36415; 70450; 71020; 80053; 81001; 82550; 82553; 83735; 84132; 84484; 85025; 85610; 85730; 87086; 93005; 93306; 93880; 94760; 95819; 96361; 96374; 99285

== ENCOUNTER 2016-05-24 10:46 | Emergency (ER) | payer MEDICARE ==
[2016-05-24 10:53] VITALS: TEMP 97.5
[2016-05-24] MEDS ORDERED: SODIUM CHLORIDE 0.9% 1,000 ML IV ONE (11:21)
--- NOTE | 2016-05-24 11:40 | ED ---
Altered Mental Status HPI - General Chief Complaint: Altered Mental Status Stated Complaint: alter mental status Time Seen by Provider: 05/24/16 11:01 Source: patient, family Mode of arrival: wheelchair Limitations: no limitations - History of Present Illness Initial Comments: Family noticed or altered mental status also they noticed that she had a dysarthria this morning which lasted for about an hour then her speech cleared up pain then now or later she had also short episode where she couldn't find the right words or Was not able to articulate well. She has had episode of mental status change about last part of the April she was admitted in the hospital she had quite a bit of a CVA workup done including head CT carotid Dopplers and echo. Now complaining about headache speech is back to normal no chest pain or shortness of breath no pleuritic chest pain no belly pain no frequency urgency dysuria - Related Data Home Medications Medication Instructions Recorded Confirmed ALPRAZolam [Xanax] 0.25 mg PO TID PRN 05/13/16 05/24/16 Losartan Potassium [Cozaar] 100 mg PO DAILY 05/13/16 05/24/16 Metoprolol Succinate (ER) [Toprol 100 mg PO HS 05/13/16 05/24/16 XL] Multivits-Min/Iron/FA/Lutein 1 tab PO DAILY@1200 05/13/16 05/24/16 [Centrum Silver Women Tablet] traMADol HCL [Ultram] 50 mg PO Q6HR PRN 05/13/16 05/24/16 Previous Rx's Medication Instructions Recorded Aspirin 81 mg PO DAILY #30 chew 05/15/16 Potassium Chloride ER [K-Dur 20] 20 meq PO DAILY #30 tab 05/15/16 amLODIPine [Norvasc] 5 mg PO DAILY #30 tab 05/15/16 Allergies Allergy/AdvReac Type Severity Reaction Status Date / Time Penicillins Allergy Unknown Verified 05/24/16 12:46 Sulfa (Sulfonamide Allergy Unknown Verified 05/24/16 12:46 Antibiotics) Review of Systems ROS Statement: Those systems with pertinent positive or pertinent negative responses have been documented in the HPI. ROS Other: All systems not noted in ROS Statement are negative. Past Medical History Past Medical History: Cancer, GERD/Reflux, Hearing Disorder / Deafness, Hyperlipidemia, Hypertension, Memory Impairment Additional Past Medical History / Comment(s): Macular degeneration, [place], breast CA, uses a walker at home, fall at home on 05/09/2016, memory impairment new onset as of 05/13/2016 History of Any Multi-Drug Resistant Organisms: None Reported Past Surgical History: Adenoidectomy, Appendectomy, Back Surgery, Cholecystectomy, Orthopedic Surgery, Tonsillectomy Additional Past Surgical History / Comment(s): Bilat knee repalacements, all bottom teeth removed and relaced in 1999, breast lumpectomy r/t breast CA in 1999 Past Anesthesia/Blood Transfusion Reactions: No Reported Reaction Past Psychological History: Anxiety Smoking Status: Never smoker Past Alcohol Use History: None Reported Past Drug Use History: None Reported - Past Family History Mother History Unknown: Yes Additional Family Medical History / Comment(s): states mom in her early 30's from a unknown cause Father Family Medical History: Myocardial Infarction (MA) Additional Family Medical History / Comment(s): d/t an MA General Exam - General Exam Comments Initial Comments: General: The patient is awake and alert, in no distress, and does not appear acutely ill. She is very hard of hearing but GCS is 15 Skin: Skin is warm and dry and no rashes or lesions are noted. Eye: Pupils are equal, round and reactive to light, extra-ocular movements are intact; there is normal conjunctiva bilaterally. Ears, nose, mouth and throat: There are moist mucous membranes and no oral lesions. Neck: The neck is supple, there is no tenderness or JVD. Cardiovascular: There is a regular rate and rhythm. No murmur, rub or gallop is appreciated. Respiratory: To auscultation bilateral, no wheezing no rhonchi no distress respiratory lomeli noticed Gastrointestinal: Soft, non-distended, non-tender abdomen without masses or organomegaly noted. There is no rebound or guarding present. Bowel sounds are unremarkable. Back: There is no tenderness to palpation in the midline. There is no obvious deformity. Musculoskeletal: Normal ROM, no tenderness, There is no pedal edema. There is no calf tenderness or swelling. No cords were appreciated. Neurological: CN II-XII intact, Cranial nerves III through XII are intact. There are no obvious motor or sensory deficits. Coordination appears grossly intact. Speech is normal. Psychiatric: Cooperative, appropriate mood & affect, normal judgment. Limitations: no limitations Course Vital Signs 05/24/16 05/24/16 10:50 12:16 Temperature 97.5 F L Pulse Rate 73 68 Respiratory 20 16 Rate Blood Pressure 153/91 133/78 O2 Sat by Pulse 98 100 Oximetry EKG revealed normal sinus rhythm ventricular rate is 70 SC interval is 178 QRS duration is 88 QT/QTc is 44/436 review of this EKG reveals some T-wave inversion in lead [address] elevation or ST depression noticed in the other leads She was watched in the ER for several hours, her labs including CBC, INR, troponin, EKG, urinalysis, chest x-ray, head CT is all normal last time she was reassessed that was at 1445 GSS is 15deficits no slurred speech no trouble comprehending information and she is hungry and she wants to go she is getting ago she is advised to follow-up with her primary care doctor Dr. Briggs and now be referred to neurologist Dr. Hwang she has seen Dr. Dhaliwal in the past Medical Decision Making - Lab Data Result diagrams: 05/24/16 11:40 05/24/16 11:40 Lab Results 05/24/16 05/24/16 05/24/16 Range/Units 11:40 11:40 11:40 WBC 6.2 (3.8-10.6) k/uL RBC 4.52 (3.80-5.40) m/uL Hgb 11.5 (11.4-16.0) gm/dL Hct 38.2 (34.0-46.0) % MCV 84.6 (80.0-100.0) fL MCH 25.4 (25.0-35.0) pg MCHC 30.1 L (31.0-37.0) g/dL RDW 15.9 H (11.5-15.5) % Plt Count 396 (150-450) k/uL Neutrophils % 50 % Lymphocytes % 37 % Monocytes % 6 % Eosinophils % 4 % Basophils % 1 % Neutrophils # 3.1 (1.3-7.7) k/uL Lymphocytes # 2.3 (1.0-4.8) k/uL Monocytes # 0.4 (0-1.0) k/uL Eosinophils # 0.3 (0-0.7) k/uL Basophils # 0.1 (0-0.2) k/uL Hypochromasia Moderate PT (9.0-12.0) sec INR (<1.1) APTT (22.0-30.0) sec Sodium 141 (137-145) mmol/L Potassium 4.9 (3.5-5.1) mmol/L Chloride 103 (98-107) mmol/L Carbon Dioxide 29 (22-30) mmol/L Anion Gap 9 mmol/L BUN 17 (7-17) mg/dL Creatinine 0.82 (0.52-1.04) mg/dL Est GFR (MDRD) Af Amer >60 (>60 ml/min/1.73 sqM) Est GFR (MDRD) Non-Af >60 (>60 ml/min/1.73 sqM) Glucose 102 H (74-99) mg/dL POC Glucose (mg/dL) (75-99) mg/dL POC Glu Utility Bagger ID Calcium 9.6 (8.4-10.2) mg/dL Total Bilirubin 0.6 (0.2-1.3) mg/dL AST 34 (14-36) U/L ALT 29 (9-52) U/L Alkaline Phosphatase 89 (38-126) U/L Total Creatine Kinase <20 L (30-135) U/L CK-MB (CK-2) 0.2 (0.0-2.4) ng/mL CK-MB (CK-2) Rel Index 0.0 Troponin I <0.012 (0.000-0.034) ng/mL Total Protein 6.8 (6.3-8.2) g/dL Albumin 3.7 (3.5-5.0) g/dL Urine Color Urine Appearance (Clear) Urine pH (5.0-8.0) Ur Specific [place] (1.001-1.035) Urine Protein (Negative) Urine Glucose (UA) (Negative) Urine Ketones (Negative) Urine Blood (Negative) Urine Nitrate (Negative) Urine Bilirubin (Negative) Urine Urobilinogen (<2.0) mg/dL Ur Leukocyte Esterase (Negative) Urine Opiates Screen (NotDetected) Ur Oxycodone Screen (NotDetected) Urine Methadone Screen (NotDetected) Ur Propoxyphene Screen (NotDetected) Ur Barbiturates Screen (NotDetected) U Tricyclic Antidepress (NotDetected) Ur Phencyclidine Scrn (NotDetected) Ur Amphetamines Screen (NotDetected) U Methamphetamines Scrn (NotDetected) U Benzodiazepines Scrn (NotDetected) Urine Cocaine Screen (NotDetected) U Marijuana (THC) Screen (NotDetected) 05/24/16 05/24/16 05/24/16 Range/Units 11:40 11:40 12:15 WBC (3.8-10.6) k/uL RBC (3.80-5.40) m/uL Hgb (11.4-16.0) gm/dL Hct (34.0-46.0) % MCV (80.0-100.0) fL MCH (25.0-35.0) pg MCHC (31.0-37.0) g/dL RDW (11.5-15.5) % Plt Count (150-450) k/uL Neutrophils % % Lymphocytes % % Monocytes % % Eosinophils % % Basophils % % Neutrophils # (1.3-7.7) k/uL Lymphocytes # (1.0-4.8) k/uL Monocytes # (0-1.0) k/uL Eosinophils # (0-0.7) k/uL Basophils # (0-0.2) k/uL Hypochromasia PT 9.9 (9.0-12.0) sec INR 1.0 (<1.1) APTT 22.5 (22.0-30.0) sec Sodium (137-145) mmol/L Potassium (3.5-5.1) mmol/L Chloride (98-107) mmol/L Carbon Dioxide (22-30) mmol/L Anion Gap mmol/L BUN (7-17) mg/dL Creatinine (0.52-1.04) mg/dL Est GFR (MDRD) Af Amer (>60 ml/min/1.73 sqM) Est GFR (MDRD) Non-Af (>60 ml/min/1.73 sqM) Glucose (74-99) mg/dL POC Glucose (mg/dL) 88 (75-99) mg/dL POC Glu Utility Bagger ID [place] Calcium (8.4-10.2) mg/dL Total Bilirubin (0.2-1.3) mg/dL AST (14-36) U/L ALT (9-52) U/L Alkaline Phosphatase (38-126) U/L Total Creatine Kinase (30-135) U/L CK-MB (CK-2) (0.0-2.4) ng/mL CK-MB (CK-2) Rel Index Troponin I (0.000-0.034) ng/mL Total Protein (6.3-8.2) g/dL Albumin (3.5-5.0) g/dL Urine Color Yellow Urine Appearance Clear (Clear) Urine pH 6.5 (5.0-8.0) Ur Specific [place] 1.010 (1.001-1.035) Urine Protein Negative (Negative) Urine Glucose (UA) Negative (Negative) Urine Ketones Negative (Negative) Urine Blood Negative (Negative) Urine Nitrate Negative (Negative) Urine Bilirubin Negative (Negative) Urine Urobilinogen <2.0 (<2.0) mg/dL Ur Leukocyte Esterase Negative (Negative) Urine Opiates Screen Not Detected (NotDetected) Ur Oxycodone Screen Not Detected (NotDetected) Urine Methadone Screen Not Detected (NotDetected) Ur Propoxyphene Screen Not Detected (NotDetected) Ur Barbiturates Screen Not Detected (NotDetected) U Tricyclic Antidepress Not Detected (NotDetected) Ur Phencyclidine Scrn Not Detected (NotDetected) Ur Amphetamines Screen Not Detected (NotDetected) U Methamphetamines Scrn Not Detected (NotDetected) U Benzodiazepines Scrn Detected H (NotDetected) Urine Cocaine Screen Not Detected (NotDetected) U Marijuana (THC) Screen Not Detected (NotDetected) Disposition Clinical Impression: Confusion, TIA (transient ischemic attack) Disposition: HOME SELF-CARE Instructions: Altered Mental Status (ED) Referrals: Dereck Briggs MD [Primary Care Provider] - 1-2 days Jourdan Dhaliwal MD [STAFF PHYSICIAN] - 1-2 days
[2016-05-24 11:56] LABS: Basophils # (A) 0.1 k/uL (0-0.2); Basophils % (A) 1 %; CHCM 30.8; Eosinophils # (A) 0.3 k/uL (0-0.7); Eosinophils % (A) 4 %; HCT 38.2 % (34.0-46.0); HDW 2.92; HGB 11.5 gm/dL (11.4-16.0); Hypochromasia Moderate; Luc # (Auto) 0.14; Luc % (Auto) 2; Lymphocytes # (A) 2.3 k/uL (1.0-4.8); Lymphocytes % (A) 37 %; MCH 25.4 pg (25.0-35.0); MCHC 30.1 g/dL (31.0-37.0); MCV 84.6 fL (80.0-100.0); Mean Platelet Volume 7.5; Monocytes # (A) 0.4 k/uL (0-1.0); Monocytes % (A) 6 %; Neutrophils # (A) 3.1 k/uL (1.3-7.7); Neutrophils % (A) 50 %; RBC 4.52 m/uL (3.80-5.40); RDW 15.9 % (11.5-15.5); WBC 6.2 k/uL (3.8-10.6); WBC (Perox) 6.51
[2016-05-24 11:57] LABS: Appearance,Urine Clear (Clear); Bilirubin,Urine Negative (Negative); Glucose,Urine (UA) Negative (Negative); Ketones,Urine Negative (Negative); Leukocyte Esterase,Urine Negative (Negative); Nitrite,Urine Negative (Negative); PH, Urine 6.5 (5.0-8.0); Protein,Urine Negative (Negative); UA Billing (MACRO vs. MICRO) CHEM; Urobilinogen,Urine <2.0 mg/dL (<2.0)
[2016-05-24 12:06] LABS: Partial Thromboplastin Time 22.5 sec (22.0-30.0); Prothrombin Time 9.9 sec (9.0-12.0)
[2016-05-24 12:09] LABS: ALT 29 U/L (9-52); AST 34 U/L (14-36); Alkaline Phosphatase 89 U/L (38-126); Anion Gap 9 mmol/L; Blood Urea Nitrogen 17 mg/dL (7-17); Calcium 9.6 mg/dL (8.4-10.2); Carbon Dioxide 29 mmol/L (22-30); Chloride 103 mmol/L (98-107); Glucose 102 mg/dL (74-99); Non-African American GFR(MDRD) >60 (>60 ml/min/1.73 sqM); Potassium 4.9 mmol/L (3.5-5.1); Sodium 141 mmol/L (137-145); Total Bilirubin 0.6 mg/dL (0.2-1.3); Total Protein 6.8 g/dL (6.3-8.2)
[2016-05-24 12:15] LABS: Creatine Kinase <20 U/L (30-135)
[2016-05-24 12:16] LABS: Glucose,Whole Blood 88 mg/dL (75-99)
[2016-05-24 12:17] VITALS: BP 133/78; PULSE 68; RESP 16
--- NOTE | 2016-05-24 12:23 | CT ---
EXAMINATION TYPE: CT brain wo con DATE OF EXAM: 05/24/2016 12:13 PM COMPARISON: 05/13/2016 HISTORY: 89-year-old female with headaches and episodes of difficulty with speech TECHNIQUE: Examination was done in axial plane without intravenous contrast. Coronal and sagittal reconstructio ns performed. CT DLP: 1036 mGycm Automated exposure control for dose reduction was used. FINDINGS: There is no evidence of acute intracranial hemorrhage, acute ischemic changes, mass, mass-effect, or extra-axial fluid collection. There is no effacement of cerebral sulci or basal subarachnoid cister ns. There is no hydrocephalus. There is no midline shift. Ferrell-white matter distinction is preserv ed. Redemonstrated mild generalized supratentorial volume loss and patchy and confluent white matter hypo densities in both cerebral hemispheres. Paranasal sinuses and mastoid air cells are well pneumatized. Orbits and globes are intact. IMPRESSION: No acute intracranial abnormality seen. Stable mild generalized atrophy and mild confluent changes of chronic small vessel ischemic disease.
[2016-05-24 12:28] LABS: Creatine Kinase MB 0.2 ng/mL (0.0-2.4); Troponin I <0.012 ng/mL (0.000-0.034)
--- NOTE | 2016-05-24 12:33 | XR ---
EXAMINATION TYPE: XR chest 2V DATE OF EXAM: 05/24/2016 12:17 PM COMPARISON: 05/13/2016 HISTORY: 89 year-old female altered mental status TECHNIQUE: Frontal and lateral views FINDINGS: I remains mildly enlarged. Elongation of the thoracic aorta. Diffuse interstitial prominence is uncha nged. Somewhat low lung volumes with crowded vascular markings. No consolidation or pleural effusion. Spinal stimulator array centered along the lower thoracic spinal canal. IMPRESSION: 1. Mild cardiomegaly. 2. Hypoventilatory and chronic changes. No acute process seen.
== END 2016-05-24 15:16 | disposition home or self-care (01) ==
LOC: EC 10:46
DX: G45.9 Transient cerebral ischemic attack, unspecified (principal); R41.0 Disorientation, unspecified; I10 Essential (primary) hypertension; F41.9 Anxiety disorder, unspecified; Z79.82 Long term (current) use of aspirin; Z79.899 Other long term (current) drug therapy; Z88.0 Allergy status to penicillin; Z88.2 Allergy status to sulfonamides
CPT/HCPCS: 36415; 70450; 71020; 80053; 80306; 81003; 82550; 82553; 84484; 85025; 85610; 85730; 93005; 99285